=== PATIENT | male | born 1995 | race Caucasian/White ===

== ENCOUNTER 2018-01-01 05:19 | Emergency (ER) | payer BC ==
[2018-01-01 05:37] VITALS: TEMP 98.4
[2018-01-01] MEDS ORDERED: MORPHINE SULFATE 4 MG/ML SYRINGE IV STA (06:08)
[2018-01-01] MEDS ORDERED: SODIUM CHLORIDE 0.9% 1,000 ML IV STA (06:08)
--- NOTE | 2018-01-01 06:16 | ED ---
Abdominal Pain HPI - General Chief Complaint: Abdominal Pain Stated Complaint: Abd Pain Time Seen by Provider: 01/01/18 05:41 Source: patient Mode of arrival: ambulatory Limitations: no limitations - History of Present Illness Initial Comments: Duran is a 22-year-old male is brought to the ED this morning by his mother for evaluation of abdominal pain, diarrhea and discomfort. Patient reports that he' s had frequent abdominal pain in the past that approximately one time per month he has episodes of crampy abdominal pain and diarrhea. He does not know what the cause of this pain is. He hasn't found any association with foods. He has no known food ALLERGIES. Patient reports that he ate at [employer] yesterday afternoon, approximately an hour later he developed some crampy abdominal pain. Patient reports he then tried to have a bowel movement and had stabbing crampy abdominal pain associated with sweating and feeling as though he is given a pass out. He did have a loose stool with no improvement in his abdominal pain. After that he went laid down for some period of time. Troponin I he's had 2 more episodes of very painful abdominal cramping and loose stools. Patient does report some bright red blood in his stool. Patient has no known history of Crohn's or ulcerative colitis, no family history of Crohn's or ulcerative colitis though he does have family members with diverticulitis. Patient has never been evaluated by gastroenterology to his mom is encouraged him to do so for a number of years. Patient had his appendix out of the younger age. - Related Data Home Medications Medication Instructions Recorded Confirmed No Known Home Medications 01/01/18 01/01/18 Allergies Allergy/AdvReac Type Severity Reaction Status Date / Time No Known Allergies Allergy Verified 01/01/18 05:37 Review of Systems ROS Statement: Those systems with pertinent positive or pertinent negative responses have been documented in the HPI. ROS Other: All systems not noted in ROS Statement are negative. Past Medical History History of Any Multi-Drug Resistant Organisms: None Reported Past Surgical History: Appendectomy, Cardiac Valve Replacement Additional Past Surgical History / Comment(s): atrial/septal defect Past Psychological History: No Psychological Hx Reported Smoking Status: Never smoker Past Alcohol Use History: Occasional Past Drug Use History: None Reported General Exam - General Exam Comments Initial Comments: Physical Exam GENERAL: Patient is well-developed and well-nourished. Patient appears uncomfortable and slightly dehydrated HENT: Normocephalic, Atraumatic. EYES: PERRL, EOMI PULMONARY: Unlabored respirations. No audible rales rhonchi or wheezing was noted. CARDIOVASCULAR: There is a regular rate and rhythm without any murmurs gallops or rubs. ABDOMEN: soft with tenderness to palpation bilateral lower quadrants SKIN: Skin is clear with no lesions or rashes and otherwise unremarkable. : Deferred NEUROLOGIC: Patient is alert and oriented x3. Moving all extremities spontaneously MUSCULOSKELETAL: Normal extremities with adequate strength and full range of motion. No lower extremity swelling or edema. No calf tenderness. PSYCHIATRIC: Normal psychiatric evaluation. Limitations: no limitations Limitations: no limitations Course Vital Signs 01/01/18 01/01/18 05:32 07:12 Temperature 98.4 F Pulse Rate 89 72 Respiratory 16 17 Rate Blood Pressure 147/78 124/70 O2 Sat by Pulse 98 100 Oximetry Medical Decision Making - Medical Decision Making She was seen and evaluated history was obtained from patient and mother Patient with multiple episodes of loose stools now having blood in his stool Patient does appear slightly dehydrated and uncomfortable labs, imaging, morphine and IV fluids were ordered Labs reveal mild leukocytosis Electrolytes within normal limits, kidney function normal CT with no acute pathology no evidence to suggest Crohn's or ulcerative colitis on CT however given the patient seems to have recurrent episodes of this I still recommend he have outpatient follow-up with gastroenterology Patient was reassessed, still having crampy abdominal pain but better, no further diarrhea. He was updated on findings and the plan for discharge home with she had follow-up. Patient mother agreeable. I did advise the patient he needs to keep a food diary to see if he can identify any causes of the pain such as specific foods that cause him to have worsening abdominal cramping or diarrhea. Patient is agreeable to this. All questions pertaining to care were answered best my ability patient was discharged home in stable condition - Lab Data Result diagrams: 01/01/18 06:10 01/01/18 06:10 Lab Results 01/01/18 01/01/18 01/01/18 Range/Units 06:10 06:10 07:18 WBC 12.7 H (3.8-10.6) k/uL RBC 5.31 (4.30-5.90) m/uL Hgb 16.3 (13.0-17.5) gm/dL Hct 46.7 (39.0-53.0) % MCV 88.0 (80.0-100.0) fL MCH 30.6 (25.0-35.0) pg MCHC 34.8 (31.0-37.0) g/dL RDW 12.2 (11.5-15.5) % Plt Count 271 (150-450) k/uL Neutrophils % 85 % Lymphocytes % 11 % Monocytes % 3 % Eosinophils % 1 % Basophils % 0 % Neutrophils # 10.8 H (1.3-7.7) k/uL Lymphocytes # 1.4 (1.0-4.8) k/uL Monocytes # 0.4 (0-1.0) k/uL Eosinophils # 0.1 (0-0.7) k/uL Basophils # 0.0 (0-0.2) k/uL Sodium 139 (137-145) mmol/L Potassium 4.3 (3.5-5.1) mmol/L Chloride 103 (98-107) mmol/L Carbon Dioxide 26 (22-30) mmol/L Anion Gap 10 mmol/L BUN 17 (9-20) mg/dL Creatinine 0.95 (0.66-1.25) mg/dL Est GFR (CKD-EPI)AfAm >90 (>60 ml/min/1.73 sqM) Est GFR (CKD-EPI)NonAf >90 (>60 ml/min/1.73 sqM) Glucose 118 H (74-99) mg/dL Calcium 10.4 H (8.4-10.2) mg/dL Total Bilirubin 1.1 (0.2-1.3) mg/dL AST 26 (17-59) U/L ALT 42 (21-72) U/L Alkaline Phosphatase 62 (38-126) U/L Total Protein 8.6 H (6.3-8.2) g/dL Albumin 5.2 H (3.5-5.0) g/dL Lipase 64 (23-300) U/L Urine Color Yellow Urine Appearance Clear (Clear) Urine pH 7.0 (5.0-8.0) Ur Specific [place] >1.050 H (1.001-1.035) Urine Protein Negative (Negative) Urine Glucose (UA) Negative (Negative) Urine Ketones Trace H (Negative) Urine Blood Negative (Negative) Urine Nitrite Negative (Negative) Urine Bilirubin Negative (Negative) Urine Urobilinogen <2.0 (<2.0) mg/dL Ur Leukocyte Esterase Negative (Negative) Disposition Clinical Impression: Abdominal pain, Diarrhea Disposition: HOME SELF-CARE Condition: Stable Instructions: Abdominal Pain (ED) Is patient prescribed a controlled substance at d/c from ED?: No Referrals: None,Stated [Primary Care Provider] - 1-2 days Bon White MD [STAFF PHYSICIAN] - 1-2 days Time of Disposition: 07:28
[2018-01-01 06:35] LABS: Basophils % (A) 0 %; Eosinophils # (A) 0.1 k/uL (0-0.7); Eosinophils % (A) 1 %; HCT 46.7 % (39.0-53.0); HGB 16.3 gm/dL (13.0-17.5); Lymphocytes # (A) 1.4 k/uL (1.0-4.8); Lymphocytes % (A) 11 %; MCH 30.6 pg (25.0-35.0); MCHC 34.8 g/dL (31.0-37.0); Mean Platelet Volume 7.4; Monocytes # (A) 0.4 k/uL (0-1.0); Monocytes % (A) 3 %; Neutrophils # (A) 10.8 k/uL (1.3-7.7); Neutrophils % (A) 85 %; Platelet Count 271 k/uL (150-450); RBC 5.31 m/uL (4.30-5.90); RDW 12.2 % (11.5-15.5); WBC 12.7 k/uL (3.8-10.6)
[2018-01-01 06:48] LABS: ALT 42 U/L (21-72); AST 26 U/L (17-59); Albumin 5.2 g/dL (3.5-5.0); Alkaline Phosphatase 62 U/L (38-126); Anion Gap 10 mmol/L; Blood Urea Nitrogen 17 mg/dL (9-20); Calcium 10.4 mg/dL (8.4-10.2); Carbon Dioxide 26 mmol/L (22-30); Chloride 103 mmol/L (98-107); Glucose 118 mg/dL (74-99); Lipase 64 U/L (23-300); Potassium 4.3 mmol/L (3.5-5.1); Sodium 139 mmol/L (137-145); Total Bilirubin 1.1 mg/dL (0.2-1.3); Total Protein 8.6 g/dL (6.3-8.2)
--- NOTE | 2018-01-01 07:03 | CT ---
EXAMINATION TYPE: CT abdomen pelvis w con DATE OF EXAM: 01/01/2018 COMPARISON: None HISTORY: Generalized pain and diarrhea CT DLP: 957.7 mGycm Automated exposure control for dose reduction was used. TECHNIQUE: Helical acquisition of images was performed from the lung bases through the pelvis. CONTRAST: Performed without Oral Contrast and with IV Contrast, patient injected with 100 mL of Isovue 300. FINDINGS: Lung bases are clear. There is no pleural effusion. Heart size is normal. There is no pericardial eff usion. Liver spleen pancreas gallbladder appear normal. Bile ducts are not dilated. There is no adren al mass. Kidneys show satisfactory contrast opacification. There is no hydronephrosis. Ureters are no t dilated. There is no retroperitoneal adenopathy. Appendix is not seen. There is apparent surgical clips from appendectomy. Bladder distends smoothly. There is no inguinal hernia. There is no ascites. There is no free fluid in the pelvis. I see no inte stinal wall thickening. There are no dilated loops. There is no mesenteric edema. The thoracic and marielel mbar spine appear intact. Bony pelvis is intact. IMPRESSION: NEGATIVE CT SCAN OF THE ABDOMEN AND PELVIS.
[2018-01-01 07:13] VITALS: BP 124/70; PULSE 72; RESP 17
[2018-01-01 07:40] LABS: Appearance,Urine Clear (Clear); Bilirubin,Urine Negative (Negative); Blood,Urine Negative (Negative); Color,Urine Yellow; Glucose,Urine (UA) Negative (Negative); Ketones,Urine Trace (Negative); Leukocyte Esterase,Urine Negative (Negative); Nitrite,Urine Negative (Negative); Protein,Urine Negative (Negative); Urobilinogen,Urine <2.0 mg/dL (<2.0)
[2018-01-01 09:30] LABS: Specific Gravity,Urine >1.050 (1.001-1.035)
== END 2018-01-01 07:55 | disposition home or self-care (01) ==
LOC: EC 05:19
DX: R10.31 Right lower quadrant pain (principal); R10.32 Left lower quadrant pain; R19.7 Diarrhea, unspecified; Z83.79 Family history of other diseases of the digestive system; Z95.2 Presence of prosthetic heart valve; Z90.49 Acquired absence of other specified parts of digestive tract
CPT/HCPCS: 36415; 80053; 83690; 85025; 81003; 74177; 99284; 96374; 96361 ×2; J2270; Q9967